=== PATIENT | female | born 1990 | race Caucasian/White ===

== ENCOUNTER 2016-11-16 10:32 | Emergency (ER) | payer SELFPAY ==
[~2016-11-16] VITALS: Ht 170.2 cm; Wt 58.7 kg
[2016-11-16 10:35] VITALS: BP 124/82
== END 2016-11-16 12:37 | disposition home or self-care (01) ==
LOC: ED 12:23
DX: N30.90 Cystitis, unspecified without hematuria (principal)
CPT/HCPCS: 81001; 87077; 87086; 87186; 99284